=== PATIENT | female | born 1985 | race Caucasian/White ===

== ENCOUNTER 2016-10-14 01:16 | Emergency (ER) | payer SELFPAY ==
[2016-10-14 02:15] LABS: BASOPHIL % 1.7 % (0-2); PLATELET COUNT 262 x10^3mcL (130-400); RED CELL DISTRIBUTION WIDTH 13.3 % (11.5-14.5)
[2016-10-14 02:42] LABS: UA SPECIFIC GRAVITY 1.025 (1.005-1.035); microscopic required? YES; urine erythrocyte NEGATIVE (NEGATIVE)
[2016-10-14 04:46] VITALS: BP 128/82
== END 2016-10-14 04:47 | disposition other institution (70) ==
LOC: ED 01:16
PROVIDERS: Emergency Medicine
DX: O23.42 Unspecified infection of urinary tract in pregnancy, second trimester (principal); Z3A.25 25 weeks gestation of pregnancy
CPT/HCPCS: 36415; Q0092

== ENCOUNTER 2016-10-14 01:16 | Emergency (ER) | payer OTHER | END 2016-10-14 02:11 | disposition other institution (70) | LOC: ED 01:16 | DX: Z02.89 Encounter for other administrative examinations (principal) ==

== ENCOUNTER 2016-12-16 01:45 | Emergency (ER) | payer OTHER ==
[2016-12-16 03:19] VITALS: BP 132/92
== END 2016-12-16 03:15 | disposition other institution (70) ==
LOC: ED 01:45
DX: Z02.89 Encounter for other administrative examinations (principal); O26.891 Other specified pregnancy related conditions, first trimester; Z3A.01 Less than 8 weeks gestation of pregnancy